=== PATIENT | female | born 1995 | race American Indian/Alaskan Native ===

== ENCOUNTER 2024-05-29 21:19 | Emergency (ER) | payer OTHER ==
[~2024-05-29] VITALS: Ht 165.1 cm; Wt 51.7 kg
[2024-05-29] MEDS ORDERED: METHADONE HCL10 MG PO (21:53)
[2024-05-29 23:04] VITALS: BP 111/69
== END 2024-05-29 23:05 | disposition home or self-care (01) ==
LOC: ED 21:19
DX: S61.213A Laceration without foreign body of left middle finger without damage to nail, initial encounter (principal); W23.0XXA Caught, crushed, jammed, or pinched between moving objects, initial encounter
CPT/HCPCS: 12001; 73140; 99283